=== PATIENT | female | born 1990 | race Caucasian/White ===

== ENCOUNTER 2021-10-12 15:04 | Inpatient (IN) ==
[~2021-10-12 15:04] MED LIST: *HR* Nalbuphine 10 MG/ML AMPUL IV PRN; Azithromycin 500 MG in 0.9 % Sodium Chloride 250 ML IVPB PRN; Famotidine 20 MG/2 ML VIAL IVP PRN; Metoclopramide 10 MG/2 ML VIAL IVP PRN; Naloxone 0.4 MG/ML INJ IVP PRN; Ondansetron 4 MG/2 ML VIAL IVP PRN; Ringers Solution, Lactated 1,000 ML IVC SCH
[2021-10-12] MEDS ORDERED: Oxytocin 30 UNIT/503 ML BAG IVC SCH (15:15)
[2021-10-12 15:38] LABS: Amphetamine Screen,Urine Negative ng/mL (Cutoff=1000); Barbiturate Screen,Urine Negative ng/mL (Cutoff=200); Benzodiazepines Screen,Urine Negative ng/mL (Cutoff=200); Cannabinoid Screen,Urine Negative ng/mL (Cutoff = 50); Cocaine Screen,Urine Negative ng/mL (Cutoff= 300); Opiate Screen,Urine Negative ng/mL (Cutoff=300); Phencyclidine Screen,Urine Negative ng/mL (Cutoff=25)
[2021-10-12] MEDS ORDERED: EPHEDrine 50 MG/ML VIAL IVP PRN (16:52)
[2021-10-12] MEDS ORDERED: Epidural Premix (fent/bupiv) 110 ML EP SCH (17:00)
[2021-10-12 21:32] LABS: Basophils # 0.1 K/mcL (0.0-0.2); Basophils % 0.6 %; Eosinophils # 0.2 K/mcL (0.0-0.6); Eosinophils % 1.5 %; Hematocrit 33.8 % (35.3-44.9); Hemoglobin 10.9 g/dL (11.5-15.4); Immature Granulocytes % 0.9 % (0-4); Lymphocytes # 2.5 K/mcL (0.6-4.6); Lymphocytes % 23.7 %; Mean Corpuscular HGB Conc 32.2 g/dL (31.6-35.5); Mean Corpuscular Hemoglobin 29.9 pg (28.0-33.3); Mean Corpuscular Volume 92.9 fL (83.0-100.0); Mean Platelet Volume 10.3 fL (9.4-12.4); Monocytes # 0.9 K/mcL (0.0-1.3); Monocytes % 7.9 %; Platelet Count 315 K/mcL (140-400); Red Blood Count 3.64 M/mcL (3.82-4.97); Red Cell Distribution Width 13.8 % (11.5-14.5); Segmented Neutrophils % 65.4 %; White Blood Count 10.7 K/mcL (4.3-11.1)
[2021-10-13] MEDS: miSOPROStoL 25 MCG TABLET PO PRN ×2 (00:15→04:31)
[2021-10-13] MEDS ORDERED: Mag Hydrox/Al Hydrox/Simeth 30 ML UDC PO PRN (01:29)
[2021-10-13] MEDS ORDERED: Lidocaine/EPI 1:200k 2% PF 20 ML VIAL ONE (08:05)
[2021-10-13] MEDS ORDERED: Benzocaine/Menthol 56 GM AEROSOL SPRAY TP PRN (10:24)
[2021-10-13] MEDS ORDERED: Ondansetron ODT 4 MG TAB.RAPDIS SL PRN (10:24)
[2021-10-13] MEDS ORDERED: Lanolin 7 G OINT...G. TP PRN (10:24)
[2021-10-13] MEDS ORDERED: OXYTOCIN/RINGERS LACTATE 10 UNIT/166.6 ML BAG IVC ONE (10:24)
[2021-10-13] MEDS: Ibuprofen 600 MG TABLET PO SCH ×2 (10:56→21:39)
[2021-10-13] MEDS: *HR* Buprenorphine HCl 8 MG TAB.SUBL SL SCH ×2 (11:47→21:40)
[2021-10-13] MEDS: Acetaminophen 325 MG TABLET PO SCH ×2 (15:08→21:40)
[2021-10-14] MEDS: Acetaminophen 325 MG TABLET PO SCH (03:50)
[2021-10-14] MEDS: Ibuprofen 600 MG TABLET PO SCH ×2 (03:50→09:12)
[2021-10-14 06:13] VITALS: TEMP 97.9
[2021-10-14 07:03] VITALS: BP 126/70; PULSE 79; O2SAT 98
[2021-10-14] MEDS ORDERED: Prenatal Vit/FA 1 EACH TABLET PO SCH (09:00)
[2021-10-14] MEDS: *HR* Buprenorphine HCl 8 MG TAB.SUBL SL SCH (09:12)
== END 2021-10-14 10:55 | disposition home or self-care (01) | DRG 560 ==
LOC: 1NENULAB → 1NENUOBS 10-13 11:31
PROVIDERS: ADMIT Student in an Organized Health Care Education/Training Program; ATTEND Student in an Organized Health Care Education/Training Program